=== PATIENT | female | born 1945 | race Caucasian/White ===

== ENCOUNTER 2018-11-14 15:32 | Emergency (ER) | payer OTHER ==
[2018-11-14 15:44] VITALS: BP 145/75
--- NOTE | 2018-11-14 16:25 | EDPHY ---
H & P Time Seen by Provider: 11/14/18 16:13 HPI/ROS: CHIEF COMPLAINT: Left ear pain, left periorbital erythema HISTORY OF PRESENT ILLNESS: 73-year-old immunocompetent female with up-to-date tetanus [place] complaining of congestion, pressure in her ear. She was seen at urgent care informed she had an ear fusion recommended decongestant. Her symptoms continue or worsen other she stops Sudafed. No acute symptoms Patient also notes for the past 3 days new erythema in her eyebrow region. She plucks and shaves her eyebrows. No ocular pain. PHYSICAL EXAM (Prior to examination, patient consented to physical exam, hands were washed and my usual and customary physical exam procedures followed) 1) GENERAL: Well-developed, well-nourished, alert and oriented. Appears to be in no acute distress. 2) HEAD: Normocephalic 3) HEENT: sclera anicteric . No injection. No proptosis. No pain with extraocular movements. No crepitus. Erythema in the left eyebrow region with the patient shaves her eyebrow hair consistent with cellulitis. No facial lesions no zoster negative Rose sign. Left ear has no evidence of infection common does have a noted middle ear effusion with no otitis media otitis externa. 4) LUNGS: Breathing comfortably. 5) SKIN: Intact no lesions [ Smoking Status: Never smoked Constitutional: Initial Vital Signs Temperature (C) 36.4 C 11/14/18 15:42 Heart Rate 80 11/14/18 15:42 Respiratory Rate 16 11/14/18 15:42 Blood Pressure 145/75 H 11/14/18 15:42 O2 Sat (%) 97 11/14/18 15:42 O2 Delivery Mode Room Air Allergies/Adverse Reactions: No Known Allergies Allergy (Unverified 11/14/18 15:41) Home Medications: Medication Instructions Recorded [place] Allergy 11/14/18 Benadryl 11/14/18 Cephalexin [Keflex] 500 mg PO TID 7 Days cap 11/14/18 Pseudoephedrine ER 11/14/18 MDM/Departure - MDM ED Course/Re-evaluation: Patient's symptoms are consistent with cellulitis in her eyebrow region where she shaves and plucks her eyebrow hair. Doubt orbital cellulitis. Doubt facial zoster. Her ear has no evidence of otitis media otitis externa. Recommend continue decongestant. I am starting the patient on oral Keflex. Her tetanus is up-to-date. She is returning home to [place] in a few days. Given usual customary wound precautions and instructions. Care of patient under supervision of secondary supervising physician Dr Bullock . - Depart Disposition: Home, Routine, Self-Care Clinical Impression: Facial cellulitis, Acute effusion of left ear Condition: Good Instructions: Cellulitis (ED) Additional Instructions: Return to the ER if you develop pain with eye movements, fever, skin lesions or any other symptoms that concern you. Prescriptions: Cephalexin [Keflex] 500 mg PO TID 7 Days cap Referrals: Marina Green MD [Medical Doctor] - 2-3 days without fail (You may also follow up with your regular doctor at home)
== END 2018-11-14 16:39 | disposition home or self-care (01) ==
DX: H65.192 Other acute nonsuppurative otitis media, left ear (principal); L03.211 Cellulitis of face